=== PATIENT | male | born 1940 ===

== ENCOUNTER 2021-02-03 06:11 | Emergency (ER) | payer MEDICARE, OTHER ==
[~2021-02-03] VITALS: Ht 177.8 cm; Wt 77.1 kg
[2021-02-03 08:12] VITALS: BP 152/92
[2021-02-03 08:16] LABS: Urine Bacteria FEW /hpf (None Seen); Urine Blood TRACE /uL (Negative); Urine Mucus FEW (None Seen); Urine Specific Gravity 1.008 (1.001-1.035); Urine WBC 1 /hpf (0 - 3)
== END 2021-02-03 08:34 | disposition home or self-care (01) ==
LOC: ER 06:11
DX: R33.9 Retention of urine, unspecified (principal)
CPT/HCPCS: 51702; 81001